=== PATIENT | female | born 1965 | race Caucasian/White ===

== ENCOUNTER 2025-08-31 06:36 | Day surgery (SDC) | payer OTHER ==
[~2025-08-31] VITALS: Ht 157.5 cm; Wt 71.4 kg
[~2025-08-31 06:36] MED LIST: ATOR10TA PO; CHL25 PO; METF-1211 PO
[2025-08-31] MEDS ORDERED: SODIUM CHLORIDE 0.9% 1,000 ML ONE (06:37)
[2025-08-31] MEDS: SODIUM CHLORIDE 0.9% 1,000 ML IV ONE (07:31)
[2025-08-31 07:50] LABS: GLUCOMETER DEV NAME(LOC) SDS.; GLUCOSE,POINT OF CARE 96 MG/DL (70-110)
[2025-08-31] MEDS ORDERED: FentaNYL CITRATE PF 100 MCG/2 ML VIAL ONE (08:05)
[2025-08-31] MEDS ORDERED: MIDAZOLAM HCL 2 MG/2 ML VIAL ONE (08:06)
[2025-08-31 09:14] VITALS: PULSE 92; RESP 14; O2SAT 100
[2025-08-31] MEDS ORDERED: LIDOCAINE 4% 50 ML SOLUTION ONE (12:00)
[2025-08-31] MEDS ORDERED: LIDOCAINE 2% 11 ML JELLY ONE (12:00)
[2025-08-31] MEDS ORDERED: BENZOCAINE 20% 50 MCG/SPRAY 57 GM ONE (12:00)
== END 2025-08-31 13:15 | disposition home or self-care (01) ==
LOC: SURGERY 06:36
PROVIDERS: ATTEND Internal Medicine Critical Care Medicine
DX: R05.3 Chronic cough (principal); Z53.8 Procedure and treatment not carried out for other reasons; R04.2 Hemoptysis; J98.09 Other diseases of bronchus, not elsewhere classified; J84.10 Pulmonary fibrosis, unspecified; J98.8 Other specified respiratory disorders; I10 Essential (primary) hypertension; E78.00 Pure hypercholesterolemia, unspecified; J45.909 Unspecified asthma, uncomplicated; Z79.84 Long term (current) use of oral hypoglycemic drugs; Z79.899 Other long term (current) drug therapy
CPT/HCPCS: 31622; 82962; J3010; J2250; J7030